=== PATIENT | female | born 1975 | race Asian ===

== ENCOUNTER → 2017-05-12 | Outpatient (CLI) | payer OTHER ==
[~2017-05-12] MED LIST: ENDOCET 5-3251 EACH PO; FERROUS SULFAT325 MG PO; IBUPROFEN800 MG PO; LABETALOL HCL200 MG PO; PRENATAL VITAM1 EAC2 PO
== END | disposition home or self-care (01) ==
LOC: NUC 06:46
DX: R94.5 Abnormal results of liver function studies (principal)
CPT/HCPCS: 78227; A9537; J2805

== ENCOUNTER 2017-08-09 01:16 | Emergency (ER) | payer OTHER ==
[~2017-08-09] VITALS: Ht 152.4 cm; Wt 52.6 kg
[2017-08-09 01:37] LABS: INTERNAL CONTROL VALID? YES
[2017-08-09 02:00] LABS: ADD MIUA? YES; COLOR ORANGE ((YELLOW)); SPECIFIC GRAVITY 1.013 (1.000-1.030)
[2017-08-09 02:15] LABS: BACTERIA RARE /HPF; EPITHELIAL CELLS RARE /HPF; MUCUS TRACE /LPF; RED BLOOD CELLS TNTC /HPF (0-5); UCUL ADDED? YES; WHITE BLOOD CELLS TNTC /HPF (0-5)
[2017-08-09 02:53] VITALS: BP 128/76
== END 2017-08-09 02:59 | disposition home or self-care (01) ==
LOC: EME 01:16
DX: N39.0 Urinary tract infection, site not specified (principal); Z87.891 Personal history of nicotine dependence; Z87.440 Personal history of urinary (tract) infections
CPT/HCPCS: 81003; 84703; 87077; 87086; 87186; 99281; 99284; J0696